=== PATIENT | male | born 1975 | race Caucasian/White ===

== ENCOUNTER 2024-08-06 13:09 | Day surgery (SDC) | payer OTHER, SELFPAY ==
[2024-08-06] VITALS (15 sets, daily range): BP systolic 113–173; BP diastolic 68–101; PULSE 78–129; RESP 16–28; TEMP 36.4–37.2; O2SAT 94–100; BMI 36.9
--- NOTE | 2024-08-06 13:20 | ED.VIS.GI ---
HPI HPI - GI History of Present Illness Chief Complaint: Foreign Body Detail of Chief Complaint: Esophageal food impaction Informant: patient and family Narrative Narrative: Patient presents to the emergency department with an esophageal food impaction. Patient states that he was eating pizza hamburger when he feels like it got stuck in his throat. He vomited twice and thinks that he may have gotten some of the hamburger up. He still cannot swallow his own secretions. He has had similar episodes in the past but never lasting as long as it has now for over an hour. Patient describes some pressure in the center of his chest. He has never had a upper GI scope. PFSH PFSH Allergy/AdvReac Type Severity Reaction Status Date / Time No Known Allergies Allergy Verified 08/06/24 13:10 ROS ROS ED Review of Systems ROS Unobtainable: other Constitutional Constitutional ED: Reports lethargy; Denies chills, fever(s), sweats or weight loss Eyes Eyes: Denies blurry vision, change in vision or diplopia ENT ENT ED: Denies rhinorrhea or sore throat Cardiovascular Cardiovascular: Denies chest pain, orthopnea or racing heartbeat Respiratory/Chest Respiratory/Chest: Denies cough, dyspnea, dyspnea on exertion, orthopnea or sputum Gastrointestinal Gastrointestinal: Reports other Details: Esophageal food impaction ; Denies abdominal pain, diarrhea, nausea or vomiting Genitourinary Genitourinary ED: Denies dysuria, hematuria or urinary frequency Musculoskeletal Musculoskeletal: Denies arthralgias, back pain, myalgias or neck pain Integumentary Denies abscess, Abrasions or rash Neurologic Neurologic: Denies headache(s) or weakness Psychiatric Psychiatric: Denies anxiety, depression or suicidal thoughts Endocrine Endocrinology: Denies polydipsia, polyphagia or polyuria Hematologic/Lymphatic Hematologic/Lymphatic: Denies easy bleeding, easy bruising or lymphadenopathy Allergic/Immunologic Allergic/Immunologic ED: Denies mouth swelling, tongue swelling or urticaria EXAM Physical Exam Const Vital Signs: 08/06/24 13:09 08/06/24 13:10 Temperature 97.6 F L Temperature Source Temporal Pulse Rate 129 H Respiratory Rate 20 H Respiratory Effort Normal Respiratory Pattern Normal Blood Pressure 173/101 H Blood Pressure Mean 125 Pulse Ox 99 Oxygen Delivery Method Room Air Positive well nourished and well developed General Appearance ED: well developed and NAD HEENT Reports TM's clear and moist mucous membranes normocephalic and atraumatic; Negative for trauma or tenderness Tympanic Membrane ED: Yes TM's clear Eyes PERRL and EOMs intact bilaterally General Eye ED: Negative for pale conjunctiva or scleral icterus Neck no lymphadenopathy, supple and no JVD General: Negative for tenderness Chest Wall inspection of chest normal and palpation of chest normal Chest: Negative for tenderness Resp normal respiratory effort and clear to auscultation bilaterally Effort and Inspection: Negative for respiratory distress or pain with movement Auscultation: Negative for rhonchi, wheezes or diminished lung sounds Cardio regular rate, regular rhythm, S1 normal heart sound, S2 normal heart sound and no murmurs Peripheral Pulses: pulses 2+ throughout GI normal to inspection, nondistended, normoactive bowel sounds, soft to palpation, non-tender, non-distended and no masses GI Narrative: Patient unable to swallow own secretions and spitting into a bag. Back/Spine no CVA tenderness and no thoracic nor lumbar tenderness Extremity normal to inspection General Extremety ED: Negative for edema General Extremity: Negative for edema Neuro oriented x3, CN's II-XII intact bilaterally, no sensory deficits noted and gait normal Sensorium / Orientation: awake, alert, oriented to person, oriented to place and oriented to time Motor Exam: strength 5/5 throughout and strength abnormal Psych mental status grossly normal Skin no rashes or lesions noted and no wounds MDM MDM MDM Narrative Medical decision making narrative: Patient presented to the emergency department with esophageal food impaction after eating hamburger about an hour ago. Unable to swallow his own secretions. Initially we attempted [employer] to see if he could swallow and he was unable to. Patient had an IV line established and was medicated with glucagon 1 mg IV. Had an episode of severe retching where he became diaphoretic and tachycardic and complaining of chest pressure. Patient had an EKG obtained that showed sinus tachycardia with ventricular rate of 119 bpm with incomplete right bundle branch block and no acute ST segment changes. I discussed case with Dr. Cary who is the scientific systems analyst on-call and patient will need to go to endoscopy for upper endoscopy. I also obtained a chest x-ray to rule out De Paz type syndrome. I do not appreciate any pneumomediastinum or other abnormality on 1 view chest x-ray. Lab Data Attestation: I reviewed the patient's lab results. Radiography Diagnostic Testin view chest x-ray obtained interpreted by myself as no evidence of pneumomediastinum or pneumothorax or other acute disease process. EKG Initial EKG: Attestation: I personally reviewed and interpreted this EKG as follows: Comments: Sinus tachycardia with ventricular rate of 119 bpm with incomplete right bundle branch block Discharge Plan Triage Chief Complaint: Foreign Body ED Provider: Darren Gonzalez Dx/Rx/DC Orders Clinical Impression: Esophageal obstruction due to food impaction Print Language: Romansh Disposition Disposition: Acute Care Hospital [facility]
--- NOTE | 2024-08-06 13:22 | EKG12_ITS ---
Test Reason : CP Blood Pressure : */* mmHG Vent. Rate : 119 BPM Atrial Rate : 119 BPM P-R Int : 164 ms QRS Dur : 106 ms QT Int : 324 ms P-R-T Axes : 40 -24 35 degrees QTcB Int : 455 ms Sinus tachycardia Incomplete right bundle branch block Minimal voltage criteria for LVH, may be normal variant ( R in aVL ) Borderline ECG Confirmed by Bruce Mirza ([id number]), videotape editor MELINA MÉNDEZ ([id number]) on 08/07/2024 12:41:59 PM Referred By: EDILBERTO Confirmed By: Bruce Mirza
[2024-08-06] MEDS: Glucagon 1 MG/ML Syringe IV (13:27)
--- NOTE | 2024-08-06 13:42 | RAD_ITS ---
PROCEDURE: CHEST 1 VIEW (PORTABLE) 08/06/2024 REASON FOR EXAM: CHEST PAIN, suspect food aspiration/choking TECHNIQUE: Frontal view of the chest. COMPARISON: None FINDINGS: Heart: The heart size is normal. Lungs: The lungs are clear. No large pleural effusion. RAD/Chest 1 View (Portable) IMPRESSION: No Acute Findings. Reading [facility]
[2024-08-06] MEDS: Ondansetron 4 MG/2 ML Vial IV (14:16)
[2024-08-06] MEDS: Lorazepam 2 MG/ML WCH Syringe 1 MG IV (15:02)
[2024-08-06] MEDS: Morphine 4 MG/ML Syringe IV (15:02)
--- NOTE | 2024-08-06 16:36 | PCM.PRE.AN2 ---
ASA Classification* ASA Classification ASA Classification: 2 and E Assessment & Plan Anesthesia* Anesthesia Assessment Anesthesia Assessment: Discussed sedation and/or anesthesia options, risks, benefits, and alternatives with patient/parents/legal guardian/POA. Questions invited. The patient/parents/legal guardian/POA seems to understand and agrees to proceed with anesthesia plan. Reviewed the physical assessment, medical history, allergy history and patient home medications list prior to surgery/procedure/anesthetic and documented any changes. Performed airway and anesthesia risk assessments. Anesthesia Type Anesthesia Type: General (Patient is a full stomach. Recently eaten.) History Source History Obtained from:: Patient and Chart Anesthesia Focused Assessment* Temperature: 98.6 F Pulse Rate: 116 Blood Pressure: 150/83 Respiratory Rate: 17 Pulse Ox: 97 Oxygen Delivery Method: Room Air Airway Assessment Mouth opens: >3 cm Mallampati Score: I Teeth Condition: Intact Neck Range of motion (ROM): Limited ROM (Patient is extension is limited secondary to recent cervical disc surgery.) Focused Labs Anesthesia Preop lab: CBC CHEMISTRY COAG Pre-Assessment Diagnosis/Proposed Procedure Planned Operative Procedure(s): Esophagogastroduodenoscopy with foreign body removal. Anesthesia History Anesthesia History - breading machine tender: Anesthesia History - breading machine tender Hx Hospitalization Any Problems With Anesthesia No 08/06/24 14:05 Cholinesterase deficiency No 08/06/24 14:05 You/Your Family Experience No 08/06/24 14:05 fever (hyperthermia) with Relationship Recent Exposure to Contagious No 08/06/24 14:05 Disease Does patient have nerve No 08/06/24 14:05 stimulator Patient instructed to have No 08/06/24 14:05 device shut off --Does patient have Pacemaker No 08/06/24 14:05 or ICD? When Was Last Pacemaker Check QUESTION #4 FULL TEXT: You/Your Family Experience fever (hyperthermia) with Anesthesia Last Oral Intake Last Oral intake: Last Oral Intake NPO since Meds taken in AM with sips of water? Meds patient instructed to take am of surgery Any additional information?: Yes NPO since: 11:45 (Patient was eating a cheeseburger.) Meds taken in AM with sips of water?: Yes PONV PONV - breading machine tender: PONV - breading machine tender Female HX of Motion Sickness HX of N/V After Surgery Non-Smoker Duration of Surgery greater than 60 minutes Number of Risk Factors PONV Score Height & Weight Height & Weight: Anesthesia: Height & Weight Height 5 ft 10 in 08/06/24 14:05 Weight: 116.891 kg 08/06/24 14:05 Body Mass Index (BMI) 36.9 08/06/24 14:05 Respiratory Assessment Respiratory Assessment - breading machine tender: Respiratory Tract Infection Hx - breading machine tender Hx Respiratory Tract Infection No 08/06/24 14:05 STOP Sleep Apnea STOP Sleep Apnea - breading machine tender: STOP Sleep Apnea - breading machine tender Hx Hypertension Yes 08/06/24 14:05 Hx Sleep Apnea No 08/06/24 14:05 CPAP BIPAP Do you snore loudly (louder No 08/06/24 14:05 than talking or can be heard Do you often feel tired/ No 08/06/24 14:05 fatigued/ sleepy during daytime? Has anyone observed you stop No 08/06/24 14:05 breathing during sleep? STOP Results Negative 08/06/24 14:05 QUESTION #5 FULL TEXT : Do you snore loudly (louder than talking or can be heard through closed doors)? 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 Specify any problems Hx of Preganancy in last 3 Months Nurse Filling Out Transfusion & Questions: Date: Time: Patient unable to answer at this time (ie. confused, unrespo /Reproduction History /Reproductive History - breading machine tender: /Reproductive Hx- breading machine tender Hx Now No 08/06/24 14:05 Gestational Age (in weeks): EDC: Hx Hx Para Hx Section SAB No 08/06/24 14:05 PFSH Home Medications ?Medication ?Instructions ?Recorded ?Last Taken ?Type albuterol sulfate 90 mcg/actuation 2 puff inhalation Q4H PRN 08/06/24 Unknown History aerosol inhaler shortness of breath or wheezing atorvastatin 20 mg tablet 20 mg PO DAILY 08/06/24 08/06/24 History cholecalciferol (vitamin D3) 10 20 mcg PO DAILY 08/06/24 08/06/24 History mcg (400 unit) tablet (Vitamin D3) cyclobenzaprine 10 mg tablet 10 mg PO QHS PRN muscle spasm 08/06/24 Unknown History fexofenadine 180 mg tablet 180 mg PO DAILY 08/06/24 08/06/24 History (Shaista Allergy) gabapentin 300 mg capsule 900 mg PO TID 08/06/24 08/06/24 History lisinopril 30 mg tablet 30 mg PO DAILY 08/06/24 08/06/24 History magnesium oxide 400 mg (241.3 mg 400 mg PO DAILY 08/06/24 08/06/24 History magnesium) tablet testosterone cypionate 200 mg/mL 200 mg IM Q14D 08/06/24 07/31/24 History intramuscular oil Allergy/AdvReac Type Severity Reaction Status Date / Time No Known Allergies Allergy Verified 08/06/24 13:10 Surgical History (Updated 08/06/24 @ 16:[address] Rahul Gorman MD) S/P cervical disc replacement Social History Smoking Status: Never smoker Review of Systems (Anesthesia) ROS Narrative System reviewed and no additional complaints, except as documented.
--- NOTE | 2024-08-06 16:36 | PCM.HP.STD ---
HPI - General General Date of Admission: 08/06/24 Date of Service: 08/06/24 Chief Complaint: Foreign body HPI Narrative PEGGY CARDOZA, is a 49 M who presents to the emergency department with an esophageal food impaction. Patient states that he was eating pizza hamburger when he feels like it got stuck in his throat. He vomited twice and thinks that he may have gotten some of the hamburger up. He still cannot swallow his own secretions. He has had similar episodes in the past but never lasting as long as it has now for over an hour. Patient describes some pressure in the center of his chest. He has never had a upper GI scope. PFSH Home Medications ?Medication ?Instructions ?Recorded ?Last Taken ?Type albuterol sulfate 90 mcg/actuation 2 puff inhalation Q4H PRN 08/06/24 Unknown History aerosol inhaler shortness of breath or wheezing atorvastatin 20 mg tablet 20 mg PO DAILY 08/06/24 08/06/24 History cholecalciferol (vitamin D3) 10 20 mcg PO DAILY 08/06/24 08/06/24 History mcg (400 unit) tablet (Vitamin D3) cyclobenzaprine 10 mg tablet 10 mg PO QHS PRN muscle spasm 08/06/24 Unknown History fexofenadine 180 mg tablet 180 mg PO DAILY 08/06/24 08/06/24 History (Shaista Allergy) gabapentin 300 mg capsule 900 mg PO TID 08/06/24 08/06/24 History lisinopril 30 mg tablet 30 mg PO DAILY 08/06/24 08/06/24 History magnesium oxide 400 mg (241.3 mg 400 mg PO DAILY 08/06/24 08/06/24 History magnesium) tablet testosterone cypionate 200 mg/mL 200 mg IM Q14D 08/06/24 07/31/24 History intramuscular oil Allergy/AdvReac Type Severity Reaction Status Date / Time No Known Allergies Allergy Verified 08/06/24 13:10 Social History Smoking Status: Never smoker ROS Constitutional Constitutional: Denies fatigue, fever(s), poor appetite, weight gain or weight loss Gastrointestinal Gastrointestinal: Denies belching, bloating, change in bowel habits, change in stool character, chewing difficulty, coffee ground emesis, constipation, cramping, diarrhea, dyspepsia, dysphagia, early satiety, excessive flatus, fecal incontinence, heartburn, hematemesis, hematochezia, hemorrhoids, loose stools, melena, nausea, odynophagia, rectal bleeding, tenesmus, vomiting or weight changes Vital Signs Vital Signs Vital Signs: 08/06/24 13:09 08/06/24 13:10 08/06/24 14:05 Temperature 97.6 F L 98.2 F Temperature Source Temporal Oral Pulse Rate 129 H 120 H Respiratory Rate 20 H 18 Respiratory Effort Normal Respiratory Pattern Normal Blood Pressure 173/101 H 165/91 H Blood Pressure Mean 125 115 Blood Pressure Source Monitor Blood Pressure Position Sitting Blood Pressure Location Right Arm Pulse Ox 99 100 Oxygen Delivery Method Room Air Room Air 08/06/24 14:12 08/06/24 15:00 08/06/24 16:00 Temperature 98.6 F Temperature Source Oral Pulse Rate 78 120 H 116 H Respiratory Rate 16 16 17 Respiratory Effort Respiratory Pattern Blood Pressure 164/78 H 150/83 H Blood Pressure Mean 106 105 Blood Pressure Source Blood Pressure Position Blood Pressure Location Pulse Ox 98 99 97 Oxygen Delivery Method Room Air Room Air Room Air 08/06/24 16:35 Temperature Temperature Source Pulse Rate 116 H Respiratory Rate 18 Respiratory Effort Respiratory Pattern Blood Pressure 158/89 H Blood Pressure Mean 112 Blood Pressure Source Monitor Blood Pressure Position Semi-Fowlers Blood Pressure Location Right Arm Pulse Ox 96 Oxygen Delivery Method Room Air Weight Weight: 257 lb 11.2 oz Body Mass Index (BMI) 36.9 Physical Exam Const alert, oriented x3, no apparent distress and healthy appearing General Appearance: cooperative GI normal to inspection, nondistended, normoactive bowel sounds, soft to palpation, non-tender and non-distended Percussion: normal to percussion Rectal Exam: deferred Results Imaging Radiology Impression Chest X-Ray 08/06/24 13:42 IMPRESSION: No Acute Findings. Reading Location: [facility] Assessment & Plan Assessment/Plan (1) Esophageal obstruction due to food impaction: PLAN: Patient was explained alternatives, risk and benefits including always any bleeding, infection, sepsis, perforation, need emergent urgent . He will have an ASA of 3.
[2024-08-06] MEDS: 0.9% Normal Saline (1000mL) 1,000 ML 15 ML IV (16:50)
--- NOTE | 2024-08-06 17:30 | EGD_PTH ---
PATIENT: PEGGY CARDOZA [place] [facility] [id number] AGE/SX: 49/M ROOM: RE08/06/[address]: Dr. Gerry Cary DO : 1975 BED: DIS: 08/06/2024 SPEC #: [id number] RECD: 08/07/24 11:33 STATUS: LARISSA RERonnie #: [id number] DEBORAH: 08/06/24 17:[address]: Gerry Cary DEPT: SURGICAL PATHOLOGY RECD BY: Mau Frias ENTERED: 08/07/24 11:33 SP TYPE: EGD BIOPSY OT DR: Madina Cooney, AIRPLANE MECHANIC APPRENTICE-C Tissues: A - Esophagus, NOS Procedures: Surgery Specimen Level IV HEADER OPERATION: EGD, foreign body PRE-OP DIAGNOSIS: Esophageal obstruction due to food impaction TISSUE SUBMITTED: A- Random esophagus biopsy MICROSCOPIC DIAGNOSIS A. Esophagus, random, biopsy: * Squamous mucosa with reactive changes. * Up to 26 eosinophils per high power field. MICROSCOPIC DESCRIPTION Slides are reviewed. GROSS DESCRIPTION A. Received in formalin in a container labeled with the patient's name, date of , and random esophagus biopsy are multiple tiny rowe-pink fragments of mucosal tissue measuring 0.6 x 0.3 x 0.1 cm in aggregate. Submitted in toto in A1. SMB 08/07/2024 CPT:97331
--- NOTE | 2024-08-06 18:34 | OP.EGD_ITS ---
Patient Name: Rodriguez Chan Procedure Date: 08/06/2024 4:36 PM Date of : 1975 Age: 49 Procedure: Upper GI endoscopy Indications: Dysphagia, Foreign body in the esophagus Providers: Gerry Cary DO Medicines: Monitored Anesthesia Care Patient Profile: This is a 49 year old male. Refer to note in patient chart for documentation of history and physical. Patient has symptoms of acute dysphagia, dysphagia with both liquids and solids and acute vomiting. Complications: No immediate complications. Procedure: Pre-Anesthesia Assessment: - Prior to the procedure, a History and Physical was performed, and patient medications and allergies were reviewed. The patient is competent. The risks and benefits of the procedure and the sedation options and risks were discussed with the patient. All questions were answered and informed consent was obtained. Patient identification and proposed procedure were verified by the physician in the pre-procedure area. Mental Status Examination: alert and oriented. Airway Examination: normal oropharyngeal airway and neck mobility. Respiratory Examination: clear to auscultation. CV Examination: normal. Prophylactic Antibiotics: The patient does not require prophylactic antibiotics. Prior Anticoagulants: The patient has taken no anticoagulant or antiplatelet agents except for NSAID medication. ASA Grade Assessment: II - A patient with mild systemic disease. After reviewing the risks and benefits, the patient was deemed in satisfactory condition to undergo the procedure. The anesthesia plan was to use monitored anesthesia care (MAC). Immediately prior to administration of medications, the patient was re-assessed for adequacy to receive sedatives. The heart rate, respiratory rate, oxygen saturations, blood pressure, adequacy of pulmonary ventilation, and response to care were monitored throughout the procedure. The physical status of the patient was re-assessed after the procedure. After obtaining informed consent, the endoscope was passed under direct vision. Throughout the procedure, the patient's blood pressure, pulse, and oxygen saturations were monitored continuously. The gastroscope was introduced through the mouth, and advanced to the second part of duodenum. The upper GI endoscopy was accomplished without difficulty. The patient tolerated the procedure well. Scope In: 5:02:17 PM Scope Out: 6:22:06 PM Total Procedure Duration Time 1 hour 19 minutes 49 seconds Findings: Fluid was found in the entire esophagus. Food was found in the entire esophagus. Removal was accomplished with a Raptor grasping device and Gonzalez net. Verification of patient identification for the specimen was done. Estimated blood loss was minimal. Mucosal changes including ringed esophagus, feline appearance, longitudinal furrows, small-caliber esophagus and white plaques were found in the entire esophagus. Esophageal findings were graded using the Eosinophilic Esophagitis Endoscopic Reference Score (EoE-EREFS) as: Edema Grade 1 Present (decreased clarity or absence of vascular markings), Rings Grade 3 Severe (distinct rings that do not permit passage of diagnostic 8-10 mm endoscope), Exudates Grade 2 Severe (scattered white lesions involving 10 percent or greater of the esophageal surface area), Furrows Grade 2 Severe (vertical lines with clear depth) and Stricture present. Biopsies were obtained from the proximal and distal esophagus with cold forceps for histology of suspected eosinophilic esophagitis. Verification of patient identification for the specimen was done. Estimated blood loss was minimal. Three benign-appearing, intrinsic severe stenoses were found. The narrowest stenosis measured 5 mm (inner diameter) x 9 cm (in length). The stenoses were traversed after dilation. A TTS dilator was passed through the scope. Dilation with a 10-11-12 mm balloon dilator was performed to 12 mm. The dilation site was examined following endoscope reinsertion and showed moderate improvement in luminal narrowing. Estimated blood loss was minimal. No gross lesions were noted in the entire examined stomach. The examined duodenum was normal. Impression: - Fluid in the esophagus. - Food in the esophagus. Removal was successful. - Esophageal mucosal changes consistent with eosinophilic esophagitis. - Benign-appearing esophageal stenoses. Dilated. - No gross lesions in the entire stomach. - Normal examined duodenum. - Biopsies were taken with a cold forceps for evaluation of eosinophilic esophagitis. Recommendation: - Discharge patient to home. - Resume previous diet. - Use Protonix (pantoprazole) 40 mg PO BID indefinitely. - Continue present medications. Procedure Code(s): --- Professional --- 10058, Esophagogastroduodenoscopy, flexible, transoral; with removal of foreign body(s) 15672, 51, Esophagogastroduodenoscopy, flexible, transoral; with transendoscopic balloon dilation of esophagus (less than 30 mm diameter) 07418, 59, Esophagogastroduodenoscopy, flexible, transoral; with biopsy, single or multiple CPT copyright 2021 [employer]. All rights reserved. The codes documented in this report are preliminary and upon aircraft powertrain repairer review may be revised to meet current compliance requirements. Gerry Cary DO 08/06/2024 6:34:08 PM This report has been signed electronically. Number of Addenda: 0 Note Initiated On: 08/06/2024 4:36 PM
--- NOTE | 2024-08-06 18:41 | PCM.POST.ANE ---
Anesthesia: Postop Eval I Current Vital Signs Temperature: 97.9 F Pulse Rate: 103 Blood Pressure: 129/84 Respiratory Rate: 28 Pulse Ox: 94 Oxygen Delivery Method: Room Air Assessment Airway patent: Yes Spontaneous unlabored respirations: Yes Mental status: Asleep (Arousable) nausea: No Vomiting: No Anesthesia Complication: No Fluid Hydration Crystalloid volume administer (ml): 1,000 Total IV fluid infused: 1,000 Progress Note Anesthesia document: Postop Eval 1 completed: Yes
[2024-08-06] MEDS: Phenol/Sodium Phenolate 180ML 3 SPRAY MUCOUS MEM (19:10)
--- NOTE | 2024-08-06 19:39 | SUR.PHASEI ---
JUST WHEN READY TO CHANGE TO PHASE II, PATIENT STATES HIS CHEST HURTS, FEELS LIKE SOMEONE SITTING ON MY CHEST. EKG HAS BEEN NORMAL/TACHY, NO ST CHANGES. SORE THROAT. 12-LEAD EKG ORDERED. DR ORTEGA AT BEDSIDE.
[2024-08-06] MEDS: Lidocaine 2% Viscous15 ML UDC 15 ML PO (19:40)
--- NOTE | 2024-08-06 19:40 | EKG12_ITS ---
Test Reason : CP Blood Pressure : */* mmHG Vent. Rate : 100 BPM Atrial Rate : 100 BPM P-R Int : 164 ms QRS Dur : 102 ms QT Int : 344 ms P-R-T Axes : 37 -22 20 degrees QTcB Int : 443 ms Normal sinus rhythm Minimal voltage criteria for LVH, may be normal variant ( R in aVL ) Borderline ECG When compared with ECG of 06-Aug-2024 13:38, MANUAL COMPARISON REQUIRED DATA IS UNCONFIRMED Confirmed by Bruce Mirza ([id number]), editor sound JANIE LYON ([id number]) on 08/10/2024 8:49:16 AM Referred By: Confirmed By: Bruce Mirza
[2024-08-06] MEDS: Mag Hydrox/Al Hydrox/Simeth 30 ML UDC PO (19:54)
--- NOTE | 2024-08-06 20:06 | SUR.PHASEII ---
12-LEAD EKG NEGATIVE PER DR ORTEGA. PATIENT'S EPIGASTRIUM AND CHEST WALL TENDER TO TOUCH, PATIENT STATES HE HAS BEEN VOMITING OR DRY HEAVING SINCE NOON WHEN OBSTRUCTION OCCURED. VSS. ABLE TO SWALLOW CLEAR LIQUIDS WITHOUT DIFFICULTY. RARE COUGH, DENIES NAUSEA. HAD GENERIC CHLORACEPTIC SPRAY FOR SORE THROAT, PO MYLANTA & PO VICOUS XYLOCAINE. RESTING QUIETLY. AWAITING MOTHER TO RETURN TO REVIEW D/C INSTRUCTIONS.
--- NOTE | 2024-08-06 20:53 | SUR.PHASEII ---
Addendum entered by Jennifer Buitrago 08/06/24 21:02: Patient is able to swallow clear liquids without difficulty, no coughing, able to manage oral secretions. SpO2 is above 94% on room air. HR tachycardic at times when coughing vigorously, otherwise, HR in 90's. Lungs clear. Original Note: After bending over to put on pants, started coughing, spitting up small amounts purple Powerade and gagging hard. Also states epigastrium & lower chest wall is very painful and is worried, area tender to touch, visually looks anxious, has been jiggling foot constantly since awakening post-procedure. at bedside. Dr Gorman reassuring patient. Dr Cary notified of above, ordered po Ativan 1 mg and po Protonix 40 mg now. Education & reassurance provided.
[2024-08-06] MEDS: LORazepam 1 MG Tablet PO (20:55)
[2024-08-06] MEDS: Pantoprazole Sodium 40 MG Tablet PO (20:55)
--- NOTE | 2024-08-06 21:16 | PCM.POSTANE2 ---
Anesthesia Postop Eval I Sum Postop Eval Completion status Anesthesia document: Postop Eval 1 completed: Yes Anesthesia Postop Eval I Summary Anesthesia Postop Eval I Summary: Anesthesia Postop Eval I: Assessment Summary Airway patent Yes 08/06/24 18:43 Spontaneous unlabored Yes 08/06/24 18:43 respirations Mental status Asleep - Arousable 08/06/24 18:43 nausea No 08/06/24 18:43 Vomiting No 08/06/24 18:43 Anesthesia Postop Eval I: Fluid Summary Crystalloid volume administer 1,000 08/06/24 18:43 (ml) Colloids volume administered ( ml) Blood Product volume administered (ml) Total IV fluid infused 1,000 08/06/24 18:43 Anesthesia Postop Eval I: Summary Notes Anesthesia Complication No 08/06/24 18:43 Anesthesia Complication Comment: Post-operative progress note Anesthesia: Postop Eval II Evaluation Mental status: Awake and Apprehensive Pain Level: 2 nausea: Yes Vomiting: No Progress Note Post-operative progress note: Patient having significant coughing in PACU. Complains of chest heaviness-a twelve-lead EKG was done and showed normal sinus rhythm. With minimal voltage criteria for LVH. Chloraseptic was ordered and given for sore throat. Mylanta and viscous lidocaine was given for his esophagus and stomach. Once the patient was getting ready to go home he bent down to put his pants on and started coughing again. At this point Protonix and Ativan was given p.o. since the IV is out. This should help decrease the acid in his stomach and also reduce any spasming occurring in his esophagus. Complications Anesthesia Complication: No
== END 2024-08-06 21:40 | disposition home or self-care (01) ==
LOC: ED 13:53 → SDC 14:03 → AC 14:03
PROVIDERS: Emergency Provider Emergency Medicine; PCP Nurse Practitioner Family; Visit Provider Internal Medicine Gastroenterology
PROC: 0DJ08ZZ Inspection of Upper Intestinal Tract, Via Natural or Artificial Opening Endoscopic (ICD-10-PCS; CPT 43235; principal; 2024-08-06 17:25)
DX: T18.128A Food in esophagus causing other injury, initial encounter (principal); X58.XXXA Exposure to other specified factors, initial encounter; K22.2 Esophageal obstruction; I10 Essential (primary) hypertension; Z79.899 Other long term (current) drug therapy
CPT/HCPCS: 43247; 43239; 43249; 71045; 88305; 93005; 99284; A4216; J1610; J2405

== ENCOUNTER → 2024-09-04 | Outpatient (CLI) | payer OTHER, SELFPAY | END | disposition home or self-care (01) | PROVIDERS: PCP Nurse Practitioner Family | DX: K20.0 Eosinophilic esophagitis (principal); T18.128A Food in esophagus causing other injury, initial encounter; W44.F3XA Food entering into or through a natural orifice, initial encounter; R19.7 Diarrhea, unspecified | CPT/HCPCS: 36415; 86003; 86005 ==